=== PATIENT | female | born 1940 | race African-American/Black ===

== ENCOUNTER 2019-02-17 00:29 | Emergency (ER) | payer OTHER ==
[~2019-02-17] VITALS: Ht 157.5 cm; Wt 68.0 kg
[2019-02-17] MEDS ORDERED: SODIUM CHLORIDE 0.9% 500 ML IV ONE (01:30)
[2019-02-17 02:49] LABS: BASOPHILS % 0.9 % (0.0-2.0); EOSINOPHILS % 1.2 % (0.0-5.0); HEMATOCRIT. 35.8 % (36.0-48.0); HEMOGLOBIN. 11.9 g/dL (12.0-16.0); LYMPHOCYTES % 12.4 % (20.0-50.0); MEAN CORPUSCULAR VOLUME 90.5 fL (81.0-99.0); MEAN PLATELET VOLUME 8.3 fl (7.4-10.4); MONOCYTES % 8.1 % (2.0-8.0); NEUTROPHILS % 77.4 % (40.0-76.0); PLATELET 200 x1000/uL (130-400); RED BLOOD CELL COUNT 3.96 mill/uL (4.2-5.4); RED CELL DISTRIBUTION WIDTH 18.2 % (11.6-14.6)
[2019-02-17 02:51] LABS: CHLORIDE 104 mEq/L (98-107)
[2019-02-17 02:56] LABS: ETHANOL BLOOD < 10 mg/dL
[2019-02-17 04:56] VITALS: BP 110/68
== END 2019-02-17 05:50 | disposition short-term general hospital (02) ==
LOC: ER 00:29 → EDBEDREQ 03:28 → EDBEDREQTM 03:28 → ER 05:50 → CANBEDREQ 06:15
DX: E11.22 Type 2 diabetes mellitus with diabetic chronic kidney disease (principal); I12.0 Hypertensive chronic kidney disease with stage 5 chronic kidney disease or end stage renal disease; R56.9 Unspecified convulsions; N18.6 End stage renal disease; Z99.2 Dependence on renal dialysis
CPT/HCPCS: 36415; 70450; 80053; 80320; 82962; 83605; 85025; 99284; J7040; G0480